=== PATIENT | female | born 1975 | race Caucasian/White ===

== ENCOUNTER 2020-04-18 08:23 | Emergency (ER) | payer MEDICAID, OTHER ==
[~2020-04-18] VITALS: Ht 160 cm; Wt 54.4 kg
[2020-04-18 08:36] VITALS: BP 110/61
--- NOTE | 2020-04-18 08:43 | NUR ---
PATIENT AMBULATED WITH CANE TO BED 4
[2020-04-18] MEDS ORDERED: LIDOCAINE 2% 1000 MG/50 ML VIAL INJ ONE (08:50)
[2020-04-18] MEDS ORDERED: BACITRACIN OINT 500 UNITS/GM PKT TP ONE (08:55)
--- NOTE | 2020-04-18 09:05 | NUR ---
44 YEAR OLD FEMALE COMPLAINS OF LACERATION TO FOREHEAD X 1 HOUR AGO. PT STATES THAT SHE SLIPPED AND FELL IN SHOWER, DENIES LOC, DENIES NAUSEA/VOMIT, DENIES CHANGE IN VISION. PT DOES NOT REMEMBER LAST TDAP. PT AOX4, BREATHING EVEN AND UNLABORED, SKIN WARM AND DRY. BED IN LOWEST POSITION, LOCKED, BED RAIL UPX1. PMH - SCOLIOSIS ALLERGIES - NKA
[2020-04-18 09:47] VITALS: BP 110/61
--- NOTE | 2020-04-18 09:47 | NUR ---
Patient discharged with v/s stable. Written and verbal after care instructions given and explained. Patient alert, oriented and verbalized understanding of instructions. Ambulatory with CANE. All questions addressed prior to discharge. ID band removed. Patient advised to follow up with PMD. Rx of MOTRIN given. Patient educated on indication of medication including possible reaction and side effects. Opportunity to ask questions provided and answered.
== END 2020-04-18 09:47 | disposition home or self-care (01) ==
LOC: MED 08:23
DX: S01.81XA Laceration without foreign body of other part of head, initial encounter (principal); Z98.890 Other specified postprocedural states; W19.XXXA Unspecified fall, initial encounter; Y93.89 Activity, other specified; Y92.89 Other specified places as the place of occurrence of the external cause; Y99.8 Other external cause status
CPT/HCPCS: 12011; 90471; 90715; 99284; J2001